=== PATIENT | female | born 1955 | race Caucasian/White ===

== ENCOUNTER → 2017-03-08 | Outpatient (CLI) | payer OTHER ==
--- NOTE | 2017-03-08 15:38 | MAMMOGRAPHY REPORT ---
UNILATERAL LEFT DIGITAL DIAGNOSTIC MAMMOGRAM: 03/08/2017 CLINICAL HISTORY: Callback from screening mammogram for left breast calcifications. TECHNIQUE: Spot magnification left CC and ML views were obtained. COMPARISON: Comparison is made to exams dated: 02/28/2017 mammogram, 02/27/2016 mammogram, 01/31/2015 mammogram, 01/27/2014 mammogram, 01/06/2013 mammogram, and 12/23/2012 mammogram - [facility]. BREAST COMPOSITION: There are scattered areas of fibroglandular density in the left breast. FINDINGS: Spot magnification views of the left breast demonstrate a small 3 mm cluster of calcificat ions in the left inferior breast at approximately 6:00. Some of the calcifications are punctate alth ough others are amorphous. The calcifications are indeterminate and stereotactic biopsy is recommend ed for further evaluation. IMPRESSION: ACR BI-RADS CATEGORY 4: SUSPICIOUS Small cluster of calcifications in the left 6:00 breast is indeterminate and stereotactic biopsy is r ecommended for further evaluation. A phone call was made to the physician's office to confirm faxed results were received. The patient has been verbally notified of the results. She tentatively scheduled the biopsy before leaving the [facility]. Approximately 10% of breast cancers are not detected with mammography. A negative mammographic report should not delay biopsy if a clinically suggestive mass is present. Flower Gutierres M.D. ah/:03/08/2017 13:28:39 Hand Scraper: Halley MARR(R)(M), [facility] letter sent: Abnormal 4/5 BI-RADS Code: ACR BI-RADS Category 4: Suspicious
== END | disposition home or self-care (01) ==
LOC: C.MAMM 13:01
PROVIDERS: ATTEND Physician Assistant
DX: R92.1 Mammographic calcification found on diagnostic imaging of breast (principal)

== ENCOUNTER → 2017-03-19 | Outpatient (CLI) | payer OTHER ==
--- NOTE | 2017-03-19 14:52 | Discharge Instructions ---
Discharge Instructions Procedure Procedure Date: Mar 19, 2017. Reason for visit: Left Calcifications. Discharge Discharge Date: Mar 19, 2017. Discharge Diagnosis: post left breast stereotactic guided biopsy Instructions Activity Recommendations: Additional Limitations (see below) Return to School/Work: no limitations Recommended Home Diet: No Limitations Provider Instructions: ACTIVITY RECOMMENDATIONS: * No lifting, pushing, pulling or exercising the affected side for three days. RETURN TO SCHOOL/WORK: * You may return to work/school after the procedure, but do not perform any strenuous activities for 24 to 48 hours. MEDICATIONS: * Tylenol (two 325 mg) every four to six hours if needed for mild pain (if not allergic to Tylenol). DIET: * Resume previous diet. SPECIAL CARE INSTRUCTIONS: * Keep biopsy site dry for 24 hours. May shower after 24 hours, but do not soak (bathe) incision. * May remove Tegaderm (plastic patch) tomorrow AFTER showering. * Leave the steri-strips on for one week. Allow the steri-strips to fall off by themselves. If not off after one week, you may remove them. You may place a Bandaid crosswise over the strips, if desired. * Apply ice 10 minutes on and 10 minutes off as needed. * Wear a bra at bedtime to sleep more comfortably for 2-3 days. * Your referring physician should have the results after approximately 5 to 7 business days. * Call for unusual bleeding, fever, drainage, etc or if you have any questions call [phone] during normal business hours or after hours call Dr Osborne, . FOLLOW UP VISIT: Follow-up with Referring Physician as scheduled. Tracy Wooten Recommendations: Call your doctor if: * Temperature above 101 degrees * Pain not relieved by pain medicine ordered * There is increased drainage or redness from any incision * You have any unanswered questions or concerns. Your Doctors Instructions noted above were prepared by provider Yuly Osborne. Patient Signature Section: Patient Instructions Signature Page Mirella Sarmiento Patient (or Guardian) Signature/Date: I have read and understand the instructions given to me by my caregivers. Caregiver/RN/Doctor Signature/Date: The above-named patient and/or guardian has received patient instructions on this date. + Original Patient Signature Page (only) stays with chart. Please make copy for patient.
--- NOTE | 2017-03-22 08:12 | MAMMOGRAPHY REPORT ---
STEREOTACTIC GUIDED BIOPSY LEFT BREAST: 03/19/2017 CLINICAL HISTORY: Indeterminate clustered microcalcifications in the 6:00 posterior left breast. Pat ient presents for stereotactic guided biopsy. COMPARISON: Comparison is made to exams dated: 03/08/2017 mammogram, 02/28/2017 mammogram, 02/27/2016 mammogram, 01/31/2015 mammogram, 01/27/2014 mammogram, and 12/23/2012 mammogram - [facility]. PATIENT CONSENT: After explaining the risks, benefits and alternatives of the procedure to the patien t, informed consent was obtained both verbally and in writing. Specific risks include: Bleeding, inf ection, puncture of adjacent structure, pain, nontarget biopsy, sampling error, metal allergy and med ication reaction. PROCEDURE DESCRIPTION: A time-out was performed and the left breast was confirmed as the site of biop sy. The patient was placed prone on the stereotactic biopsy table and the breast was placed in the me diallateral compression. A account development executive image was obtained that demonstrated the clustered microcalcificati ons in question. They are amenable to sterotactic biopsy. Then +15 and -15 stereo pair images were obtained. The calcifications were targeted utilizing the coordinates obtained by the computer. The skin was prepped with Betadine. 1% Lidocaine with and without epinipherine was administered as local anesthesia. A small skin incision was made. Through the incision, the needle was inserted to the dep th determined by the computer. 6 samples were obtained using a [employer] 9-gauge vacuum-assisted bi opsy device. The specimen radiograph demonstrated no appliance service representative microcalcifications, therefore, r etargeting was performed and a 4 additional core biopsy samples were obtained. These new samples dem onstrated numerous appliance service representative microcalcifications therefore a dumbbell shaped metallic marker was placed at the biopsy site. There was no immediate complication. Hemostasis was achieved after severa l minutes of manual compression. The samples were sent to pathology in two appropriately labeled con tainers, "with calcifications" and "without calcifications". All of the samples were obtained from th e same single biopsy site. Postprocedure CC and ML views of the left breast were obtained. There is a new dumbbell-shaped meta llic biopsy marker in the 6:00 posterior left breast, at the site of biopsied microcalcifications. N o significant postbiopsy hematoma is seen. IMPRESSION: STEREOTACTIC GUIDED BIOPSY Status post left breast stereotactic guided biopsy of clustered microcalcifications in the 6:00 poste rior left breast, with biopsy marker placed at the site. The patient will receive notification of the biopsy results from her referring physician. Yuly Osborne M.D. ay/:03/19/2017 15:14:20 Director Of Research: Halley VELAZQUEZ)(Giorgio), [facility]
--- NOTE | 2017-03-22 08:15 | MAMMOGRAPHY REPORT ---
UNILATERAL LEFT DIGITAL DIAGNOSTIC MAMMOGRAM: 03/19/2017 CLINICAL HISTORY: Status post stereotactic guided biopsy of a cluster of amorphous microcalcification s in the 6:00 posterior left breast. Please refer to the report from left breast stereotactic guided biopsy performed at the same time for full detail. IMPRESSION: POST PROCEDURE IMAGING FOR MARKER PLACEMENT Please refer to the report from left breast stereotactic guided biopsy performed at the same time for full detail. Approximately 10% of breast cancers are not detected with mammography. A negative mammographic report should not delay biopsy if a clinically suggestive mass is present. Yuly Osborne M.D. ay/:03/19/2017 14:56:33 Car Storer: Halley MARR(Misty)(M), [facility] BI-RADS Code: Post Procedure Imaging For Marker Placement
== END | disposition home or self-care (01) ==
LOC: C.MAMM 13:11
PROVIDERS: ATTEND Physician Assistant
DX: R92.0 Mammographic microcalcification found on diagnostic imaging of breast (principal); N60.92 Unspecified benign mammary dysplasia of left breast; N60.12 Diffuse cystic mastopathy of left breast; N60.22 Fibroadenosis of left breast